=== PATIENT | male | born 1995 | race Two or more races ===

== ENCOUNTER 2018-06-07 02:10 | Emergency (ER) | payer MEDICAID ==
[~2018-06-07] VITALS: Ht 175.3 cm; Wt 85.3 kg
[2018-06-07 02:29] VITALS: Ht 175.3 cm; Wt 85.3 kg
[2018-06-07 04:08] VITALS: BP 124/88
[2018-06-09 13:20] LABS: RAPID PLASMA REAGIN Non Reactive (Non Reactive)
== END 2018-06-07 04:08 | disposition home or self-care (01) ==
LOC: ED 02:10
PROVIDERS: Emergency Medicine
DX: N48.89 Other specified disorders of penis (principal)

== ENCOUNTER 2019-03-11 12:58 | Emergency (ER) | payer SELFPAY ==
[~2019-03-11] VITALS: Ht 172.7 cm; Wt 87.5 kg
[2019-03-11 13:14] VITALS: BP 140/91; Ht 172.7 cm; Wt 87.5 kg
[2019-03-11 13:53] LABS: microscopic required? NO
[2019-03-11 14:05] LABS: UA SPECIFIC GRAVITY 1.025 (1.005-1.035); urine erythrocyte NEGATIVE (NEGATIVE)
[2019-03-13 07:09] LABS: RAPID PLASMA REAGIN Non Reactive (Non Reactive)
== END 2019-03-11 14:48 | disposition home or self-care (01) ==
LOC: ED 12:58
PROVIDERS: Emergency Medicine
DX: N34.2 Other urethritis (principal)
CPT/HCPCS: 87491; 87591; J0696

== ENCOUNTER 2019-10-07 00:40 | Emergency (ER) | payer SELFPAY ==
[~2019-10-07] VITALS: Ht 172.7 cm; Wt 78.2 kg
[2019-10-07 00:42] VITALS: Ht 172.7 cm; Wt 78.2 kg
[2019-10-07 01:38] LABS: CALCIUM 9.1 mg/dL (8.5-10.1); CHLORIDE SERUM 106 mmol/L (98-107); CREATININE SERUM 1.2 mg/dL (0.7-1.3); GFR1 > 60 mL/min; GLUCOSE SERUM 86 mg/dL (74-106); SODIUM SERUM 141 mmol/L (136-145)
[2019-10-07 01:42] LABS: ALBUMIN 4.3 g/dL (3.4-5.0); ALKALINE PHOSPHATASE 71 U/L (46-116); ALT/SGPT 24 U/L (16-63); AST/SGOT 16 U/L (15-37); BILIRUBIN TOTAL 0.65 mg/dL (0.20-1.00); LIPASE 227 IU/L (73-393); TOTAL PROTEIN, SERUM 7.5 g/dL (6.4-8.2)
[2019-10-07 01:58] LABS: PLATELET COUNT 184 x10^3mcL (130-400); RED CELL DISTRIBUTION WIDTH 16.7 % (11.5-14.5)
[2019-10-07 03:07] VITALS: BP 114/80
== END 2019-10-07 03:07 | disposition home or self-care (01) ==
LOC: ED 00:40
PROVIDERS: Emergency Medicine
DX: K21.9 Gastro-esophageal reflux disease without esophagitis (principal)
CPT/HCPCS: 36415; Q0092

== ENCOUNTER 2019-10-26 01:06 | Emergency (ER) | payer SELFPAY ==
[~2019-10-26] VITALS: Ht 177.8 cm; Wt 79.8 kg
[2019-10-26 03:08] LABS: CALCIUM 8.5 mg/dL (8.5-10.1); CARBON DIOXIDE 26.6 mmol/L (21-32); CHLORIDE SERUM 103 mmol/L (98-107); CREATININE SERUM 1.1 mg/dL (0.7-1.3); GFR1 > 60 mL/min; GLUCOSE SERUM 107 mg/dL (74-106); POTASSIUM SERUM 3.7 mmol/L (3.5-5.1); SODIUM SERUM 139 mmol/L (136-145)
[2019-10-26 03:14] LABS: ALBUMIN 3.7 g/dL (3.4-5.0); ALKALINE PHOSPHATASE 69 U/L (46-116); ALT/SGPT 36 U/L (16-63); AST/SGOT 31 U/L (15-37); BILIRUBIN TOTAL 0.6 mg/dL (0.20-1.00); LIPASE 173 IU/L (73-393); TOTAL PROTEIN, SERUM 6.7 g/dL (6.4-8.2)
[2019-10-26 03:42] LABS: BASOPHIL % 0.3 % (0-2); PLATELET COUNT 306 x10^3mcL (130-400); RED CELL DISTRIBUTION WIDTH 17.1 % (11.5-14.5)
[2019-10-26 04:38] VITALS: BP 97/58
== END 2019-10-26 04:38 | disposition home or self-care (01) ==
LOC: ED 01:06
PROVIDERS: Emergency Medicine
DX: R10.13 Epigastric pain (principal)
CPT/HCPCS: 36415; Q0092

== ENCOUNTER 2020-04-20 03:45 | Emergency (ER) | payer OTHER ==
[~2020-04-20] VITALS: Ht 177.8 cm; Wt 77.1 kg
[2020-04-20 03:50] VITALS: Ht 177.8 cm; Wt 77.1 kg
[2020-04-20 04:31] LABS: microscopic required? NO
[2020-04-20 04:46] LABS: UA SPECIFIC GRAVITY >=1.030 (1.005-1.035); urine erythrocyte NEGATIVE (NEGATIVE)
[2020-04-20 06:15] VITALS: BP 118/84
== END 2020-04-20 06:15 | disposition home or self-care (01) ==
LOC: ED 03:45
PROVIDERS: Specialist
DX: N34.2 Other urethritis (principal)
CPT/HCPCS: 87491; 87591; J0696